=== PATIENT | female | born 1985 | race Caucasian/White ===

== ENCOUNTER 2017-02-11 11:04 | Emergency (ER) | payer OTHER ==
[~2017-02-11] VITALS: Ht 170.2 cm; Wt 87.0 kg
[~2017-02-11 11:04] MED LIST: ALPRAZOLAM0.25 MG PO; AMBIEN10 MG PO; AMITRIPTYLINE H75 MG PO; CLINDAMYCIN HC300 MG PO; DILAUDID8 MG PO; DOXYCYCLINE HY100 MG PO; FLAGYL500 MG PO; KLONOPIN0.5 M1 PO; METHADONE10 MG PO; Motrin PO; OXYCODONE HCL30 MG PO; PERCOCET 5-3251 EACH PO; SOMA250 MG PO
[2017-02-11 12:37] LABS: HEMATOCRIT 40.6 % (36.0-46.0); MCH 32.7 PG (29.0-34.0); MCV 96.2 FL (83-99); MEAN PLAT.VOLUME 9.6 uM^3 (9.5-12.4); PLATELET COUNT 330 K/uL (156-360); RBC DIS.WIDTH-CV 12.5 % (11.8-14.6); RBC DIS.WIDTH-SD 44.1 % (39-53); RED BLOOD COUNT 4.22 M/uL (3.80-5.20); WHITE BLOOD COUNT 9.8 K/uL (4.1-10.2)
[2017-02-11 12:57] LABS: CHLORIDE 104 mEq/L (99-109); SODIUM 137 mEq/L (136-147)
[2017-02-11 12:59] LABS: QUANTITATIVE HCG < 4.0 MIU/ML
[2017-02-11 13:39] LABS: GLUCOSE 107 mg/dL (70-99); UREA NITROGEN (BUN) 12 mg/dL (9-23)
[2017-02-11 13:40] LABS: ALKALINE PHOSPHATASE 96 IU/L (3-129); GFR ESTIMATE (CALCULATED) > 59 mL/min/; TOTAL BILIRUBIN 0.4 MG/DL (0.0-1.0)
[2017-02-11 13:52] LABS: LIPASE 25 U/L (1.0-51.0)
[2017-02-11 14:04] LABS: ADD MIUA? YES; BILIRUBIN NEGATIVE; BLOOD SMALL; COLOR YELLOW ((YELLOW)); GLUCOSE (STRIP) NEGATIVE; KETONES NEGATIVE; LEUKOCYTES TRACE; NITRITE NEGATIVE; PROTEIN (STRIP) NEGATIVE; SPECIFIC GRAVITY 1.026 (1.000-1.030); UROBILINOGEN 0.2 MG/DL (0.2-1.0)
[2017-02-11 14:16] LABS: BACTERIA RARE /HPF; EPITHELIAL CELLS 2+ /HPF; MUCUS 1+ /LPF; UCUL ADDED? NO; WHITE BLOOD CELLS 0-5 /HPF (0-5)
[2017-02-11] MEDS ORDERED: BENTYL20 MG PO (15:12)
[2017-02-11] MEDS ORDERED: ZOFRAN ODT4 MG PO (15:12)
[2017-02-11 15:31] VITALS: BP 117/64
== END 2017-02-11 15:32 | disposition home or self-care (01) ==
LOC: EME 11:04
DX: R10.11 Right upper quadrant pain (principal); R11.10 Vomiting, unspecified; R31.9 Hematuria, unspecified; F41.9 Anxiety disorder, unspecified; F32.9 Major depressive disorder, single episode, unspecified; F17.200 Nicotine dependence, unspecified, uncomplicated
CPT/HCPCS: 76705; 80053; 81003; 83690; 84702; 85027; 99281; 99284; J0500; J1885